=== PATIENT | male | born 1975 | race Caucasian/White ===

== ENCOUNTER → 2021-05-12 | Outpatient (CLI) | payer BC, OTHER ==
[~2021-05-12] MED LIST: PHEN-640 PO; SULF1TAB34 PO; TRZ50T PO
--- NOTE | 2021-05-12 15:26 | Diagnostic Imaging Report ---
INDICATION: History of renal calculus. COMPARISON: None FINDINGS: Two supine frontal radiographic views the abdomen were obtained and show nondistended loops of small bowel. There is no large collection of free intraperitoneal air. No unexpected radiopaque foreign bodies are seen. Small extraosseous calcification is identified projecting over the left hemipelvis and is favored to represent phlebolith. No other unexpected extraosseous calcifications are seen. Osseous structures show no gross acute abnormalities. IMPRESSION: 1. Nonobstructed small bowel gas pattern. 2. Probable left pelvic phlebolith. Dictated by: Dictated on workstation # [id number]
== END ==
LOC: RAD 13:18
PROVIDERS: ATTEND Urology
DX: N20.1 Calculus of ureter (principal)
CPT/HCPCS: 74018

== ENCOUNTER 2021-05-13 06:21 | Day surgery (SDC) | payer BC ==
[~2021-05-13] VITALS: Ht 177 cm; Wt 100.0 kg
[2021-05-13] VITALS (11 sets, daily range): BP systolic 108–150; BP diastolic 65–102
--- NOTE | 2021-05-13 07:18 | Progress Note-Pre Operative ---
Pre-Operative Progress Note H&P Reviewed The H&P was reviewed, patient examined and no changes noted. Date Seen by Provider: May 13, 2021 Time Seen by Provider: 07:18 Date H&P Reviewed: May 13, 2021 Time H&P Reviewed: 07:18 Pre-Operative Diagnosis: RT DISTAL URETERAL STONE CHARISSA HUANG MD May 13, 2021 07:18
--- NOTE | 2021-05-13 07:23 | Progress Note-Post Operative ---
Post-Operative Progess Note Surgeon (s)/Signals Intelligence Analyst (s) Surgeon CHARISSA HUANG MD Signals Intelligence Analyst: NONE Pre-Operative Diagnosis RT DISTAL URETERAL STONE Post-Operative Diagnosis SAME Procedure & Operative Findings Date of Procedure 05/13/21 Procedure Performed/Findings CYSTOSOCPY WITH RT URETEROSCOPY AND STONE LITHOTRIPSY Anesthesia Type GENERAL Estimated Blood Loss Estimated blood loss (mL): NONE Specimens/Packing Specimens Removed NONE Packing: NONE CHARISSA HUANG MD May 13, 2021 07:23
--- NOTE | 2021-05-13 07:39 | Discharge Inst-Urology ---
Discharge Inst-Urology Reconcile Patient Problems Final Diagnosis RT DISTAL URETERAL STONE Patient Instructions/Follow Up Plan/Assessment/Instructions Please make appointment to been seen in office in 2 weeks. Strain urines, collect, save stone fragments and bring to office visit Increase oral fluids for 48 hours and then as needed. Diet and Activity as tolerated. If questions or concerns contact your physician Or seek help at emergency department. CHARISSA HUANG MD May 13, 2021 07:39
[2021-05-13] MEDS ORDERED: fentaNYL INJ 100 MCG/2 ML AMP IVP ONE (07:45)
[2021-05-13] MEDS ORDERED: ONDANSETRON 4 MG/2 ML (SDV) Z0FRAN IVP ONE ×2 (07:45→12:15)
--- NOTE | 2021-05-13 07:46 | Diagnostic Imaging Report ---
INDICATION: Presurgical evaluation for stones. EXAMINATION: Abdomen 05/13/2021. COMPARISON: 05/12/2021 FINDINGS: Densities in the left aspect of the pelvis stable from previous imaging. Stones possible although phleboliths could cause a similar appearance. Remaining abdomen is stable with no other evidence for nephrolithiasis or urolithiasis. There is a nonobstructive bowel gas pattern. IMPRESSION: 1. Stable density in the left aspect of the pelvis nonspecific. Dictated by: Dictated on workstation # [id number]
[2021-05-13] MEDS ORDERED: TRZ50T PO (07:51)
[2021-05-13] MEDS: LACTATED RINGERS 1,000 ML IV PRN ×2 (08:05→09:05)
[2021-05-13] MEDS ORDERED: LIDOCAINE PF 2% 5 ML (XYLOCAINE) VIAL ONE (08:13)
[2021-05-13] MEDS ORDERED: MIDAZOLAM 2 MG/2 ML (VERSED) VIAL ONE (08:13)
[2021-05-13] MEDS ORDERED: ONDANSETRON 4 MG/2 ML (SDV) Z0FRAN ONE ×2 (08:13→12:15)
[2021-05-13] MEDS ORDERED: proPOfol 200 MG/20 ML (DIPRIVAN) VIAL IV ONE ×2 (08:13→09:33)
[2021-05-13] MEDS ORDERED: ROCURONIUM 10 MG/ML 5 ML SYRINGE IV ONE (08:13)
[2021-05-13] MEDS ORDERED: SEVOFLURANE (ULTANE) 15 ML INHAL SOLN ONE ×2 (08:13→09:33)
[2021-05-13] MEDS ORDERED: fentaNYL INJ 100 MCG/2 ML AMP ONE (08:13)
[2021-05-13] MEDS ORDERED: SULF1TAB34 PO (12:34)
[2021-05-13] MEDS ORDERED: PHEN-640 PO (12:34)
--- NOTE | 2021-05-13 14:16 | OPERATIVE REPORT ---
DATE OF SERVICE: 05/13/2021 PREOPERATIVE DIAGNOSIS: Right distal ureteral stone. POSTOPERATIVE DIAGNOSIS: Right distal ureteral stone. OPERATION PERFORMED: Cystoscopy with right ureteroscopy and stone lithotripsy. SURGEON: Umair Huang MD ANESTHESIA: General. COMPLICATIONS: None. DESCRIPTION OF PROCEDURE: Under satisfactory general anesthesia, the patient in lithotomy position, genitalia were prepped and draped in the usual sterile fashion. Cystoscope was introduced under vision. The anterior urethra was normal. The prostate was nonobstructing. The bladder neck was opened. The bladder was inspected and was completely normal except for a sluggish efflux on the right side. Using the foroblique lens, I dilated the right ureteral orifice intramural portion to the level of the stone to accommodate a 6.9 [place] semi-rigid ureteroscope. The stone was visualized and was floating, so I started with a power of 5 with the lithoclast and broke up the stone and continue breaking it up with a power of 12. The stone was completely fragmented and some of the fragments flew down to the bladder. I went above the stone. There were no further calcifications or below, removed the ureteroscope. The patient tolerated the procedure and anesthesia well and was sent to recovery room in stable condition. PLAN: We will work him up for stone prevention when he comes to my office in 2 weeks. Job ID: [id number] DocumentID: [id number] Dictated Date: 05/13/2021 09:51:54 Emergency Department Date: 05/13/2021 14:15:14 Dictated By: UMAIR HUANG MD
--- NOTE | 2021-05-13 14:38 | Anesthesia-General Post-Op ---
General Patient Condition Mental Status/LOC: Same as Preop Cardiovascular: Satisfactory Nausea/Vomiting: Absent Respiratory: Satisfactory Pain: Controlled Complications: Absent Post Op Complications Complications None Follow Up Care/Instructions Patient Instructions None needed. Anesthesia/Patient Condition Patient Condition Patient is doing well, no complaints, stable vital signs, no apparent adverse anesthesia problems. No complications reported per nursing. SCOTTIE MORA CRNA May 13, 2021 14:38
== END 2021-05-13 12:50 | disposition home or self-care (01) ==
LOC: SDC 06:21
PROVIDERS: ATTEND Urology
DX: N20.1 Calculus of ureter (principal); E66.9 Obesity, unspecified; Z68.31 Body mass index [BMI] 31.0-31.9, adult; Z79.899 Other long term (current) drug therapy
CPT/HCPCS: 74018; 76000; 87081

== ENCOUNTER 2021-06-13 16:00 | Outpatient (RCR) | payer BC | END 2021-08-25 | disposition home or self-care (01) | LOC: LAB 16:00 | PROVIDERS: ATTEND Urology | DX: N20.1 Calculus of ureter (principal) | CPT/HCPCS: 36415; 82140; 82340; 82507; 82570; 83735; 83945; 83986; 84105; 84133; 84300; 84392; 84560; 88300 ==